=== PATIENT | female | born 1965 | race Caucasian/White ===

== ENCOUNTER → 2016-02-21 | Outpatient (CLI) | payer OTHER ==
[~2016-02-21] MED LIST: THYR90TA PO
--- NOTE | 2016-02-22 15:10 | MAMMOGRAPHY REPORT ---
BILATERAL DIGITAL SCREENING MAMMOGRAM TOMOSYNTHESIS WITH CAD: 02/21/2016 CLINICAL HISTORY: Routine screening. Patient has no complaints. TECHNIQUE: Breast tomosynthesis in addition to standard 2D mammography was performed. Current study was also evaluated with a Computer Aided Detection (CAD) system. COMPARISON: Comparison is made to exams dated: 02/11/2015 mammogram, 02/10/2013 mammogram, 02/11/20 14 mammogram, 02/09/2012 mammogram, 02/07/2011 mammogram, and 01/25/2010 mammogram - [facility]. BREAST COMPOSITION: The tissue of both breasts is extremely dense, which lowers the sensitivity of mammography. FINDINGS: There is a newly visualized 6.5 mm mass in the far superior posterior left breast, projec ting over the pectoralis muscle on the MLO view. There is a suggestion of a lucent center on the to mosynthesis images and this could represent a lymph node, however, further characterization with ult rasound is recommended. Another possible 5 mm mass in the superior posterior left breast, anterior to the 6.5 mm mass on the MLO view. Although this could represent normal overlapping fibroglandular tissue, additional spot compression tomosynthesis views and possibly ultrasound are recommended. No other suspicious mass, architectural distortion or cluster of microcalcifications is seen. IMPRESSION: ACR BI-RADS CATEGORY 0: INCOMPLETE EVALUATION: NEED ADDITIONAL IMAGING EVALUATION The new subcentimeter masses in the superior posterior left breast need additional imaging evaluatio n. The patient will be called to schedule an appointment. Approximately 10% of breast cancers are not detected with mammography. A negative mammographic repor t should not delay biopsy if a clinically suggestive mass is present. Sara Molina M.D. ay/:02/21/2016 16:56:13 Office Machine Inspector: Garfield FUNK(Vipul)(Pawel), [facility] letter sent: Addl Imaging 0 BI-RADS Code: ACR BI-RADS Category 0: Incomplete Evaluation: Need Additional Imaging Evaluation
== END | disposition home or self-care (01) ==
LOC: C.MAMM 12:04
PROVIDERS: ATTEND Family Medicine
DX: Z12.31 Encounter for screening mammogram for malignant neoplasm of breast (principal); N63 Unspecified lump in breast

== ENCOUNTER → 2016-03-01 | Outpatient (CLI) | payer OTHER ==
--- NOTE | 2016-03-01 13:59 | MAMMOGRAPHY REPORT ---
UNILATERAL LEFT DIGITAL DIAGNOSTIC MAMMOGRAM TOMOSYNTHESIS AND TARGETED LEFT ULTRASOUND: 03/01/2016 CLINICAL HISTORY: Callback from screening mammogram for left breast masses. TECHNIQUE: Breast tomosynthesis in addition to standard 2D mammography was performed. Spot kayleen ronna left CC and MLO 2-D and tomosynthesis images were obtained. COMPARISON: Comparison is made to exams dated: 02/21/2016 mammogram, 02/11/2015 mammogram, 02/10/2014 mammogram, 02/10/2013 mammogram, 02/09/2012 mammogram, and 02/07/2011 mammogram - [facility]. BREAST COMPOSITION: The tissue of the left breast is extremely dense, which lowers the sensitivity of mammography. FINDINGS: Spot compression views of the left breast demonstrate an oval circumscribed 6 mm mass in the left upper outer quadrant. A lucent center is seen on the tomosynthesis images, suggestive of a fatty hilum within an intramammary lymph node. There is nodularity within the left superior breast on the MLO view, which appears stable compared t o prior exams including the 2013 and 2011 exam, and is benign given long-term stability. Targeted ultrasound was performed of the left breast in the region of the possible mammographic mass es. In the left breast at 2:00, 7 cm from the nipple, there is an oval circumscribed 6 x 3 x 5 mm m ass, which has an echogenic fatty hilum and peripheral hypoechoic cortex as well as internal vascula rity. This corresponds with the circumscribed mammographic mass and is consistent with a benign int ramammary lymph node. Targeted ultrasound was performed of the left superior breast in the region o f the nodularity seen mammographically. No suspicious masses or other suspicious sonographic abnorm alities are evident. Expected postsurgical changes are seen in the left breast at 11:00 and 2:00 at the sites of surgical scars from prior benign surgical excisions. IMPRESSION: ACR BI-RADS CATEGORY 2: BENIGN, TARGETED ULTRASOUND ACR BI-RADS CATEGORY 2: BENIGN 1. Benign 6 mm intramammary lymph node in the left breast at 2:00. 2. Nodularity in the left superior breast is stable mammographically dating back to 2011, without a suspicious corresponding sonographic abnormality evident. Findings are benign given long-term stab ility. There is no mammographic or targeted sonographic evidence of malignancy. A 1 year screening mammogra m is recommended. The patient has been verbally notified of the results. Approximately 10% of breast cancers are not detected with mammography. A negative mammographic repor t should not delay biopsy if a clinically suggestive mass is present. Esmer Chowdary M.D. ah/:03/01/2016 10:38:35 Ambulatory Care Nurse: Natalya KINSEY)(Pawel), [facility] letter sent: Normal 1/2 BI-RADS Code: ACR BI-RADS Category 2: Benign Ultrasound BI-RADS: ACR BI-RADS Category 2: Benign
== END | disposition home or self-care (01) ==
LOC: C.MAMM 09:16
PROVIDERS: ATTEND Family Medicine
DX: R92.8 Other abnormal and inconclusive findings on diagnostic imaging of breast (principal)

== ENCOUNTER → 2017-02-21 | Outpatient (CLI) | payer OTHER ==
--- NOTE | 2017-02-22 12:46 | MAMMOGRAPHY REPORT ---
BILATERAL DIGITAL SCREENING MAMMOGRAM TOMOSYNTHESIS WITH CAD: 02/21/2017 CLINICAL HISTORY: Routine screening. The patient has no current complaints. TECHNIQUE: Breast tomosynthesis in addition to standard 2D mammography was performed. Current study was also evaluated with a Computer Aided Detection (CAD) system. COMPARISON: Comparison is made to exams dated: 03/01/2016 mammogram, 03/01/2016 ultrasound, 02/21/2016 m ammogram, 02/11/2015 mammogram, 02/10/2014 mammogram, and 02/10/2013 mammogram - [facility]. BREAST COMPOSITION: The tissue of both breasts is extremely dense, which lowers the sensitivity of m ammography. FINDINGS: No suspicious masses, calcifications, or areas of architectural distortion are noted in ei ther breast. There has been no significant interval change compared to prior exams. Scattered bilater al benign-appearing calcifications are not significantly changed. IMPRESSION: ACR BI-RADS CATEGORY 2: BENIGN There is no mammographic evidence of malignancy. A 1 year screening mammogram is recommended. The pa tient will receive written notification of the results. Approximately 10% of breast cancers are not detected with mammography. A negative mammographic report should not delay biopsy if a clinically suggestive mass is present. Esmer Chowdary M.D. ah/:02/21/2017 14:59:10 Computer Tester: Sugey FUNK(Vipul)(M), [facility] letter sent: Normal 1/2 BI-RADS Code: ACR BI-RADS Category 2: Benign
== END | disposition home or self-care (01) ==
LOC: C.MAMM 11:28
PROVIDERS: ATTEND Family Medicine
DX: Z12.31 Encounter for screening mammogram for malignant neoplasm of breast (principal)